=== PATIENT | male | born 1970 | race Caucasian/White ===

== ENCOUNTER 2019-06-20 07:33 | Emergency (ER) | payer OTHER, BC ==
[~2019-06-20] VITALS: Ht 167.6 cm; Wt 99.8 kg
[2019-06-20] MEDS ORDERED: BENAZEPRIL HCL20 MG PO (07:48)
== END 2019-06-20 08:30 | disposition home or self-care (01) ==
LOC: ED 07:33
PROC: 0XQRXZZ Repair Left Middle Finger, External Approach (ICD-10-PCS; principal; 2019-06-20)
DX: S61.213A Laceration without foreign body of left middle finger without damage to nail, initial encounter (principal); S61.215A Laceration without foreign body of left ring finger without damage to nail, initial encounter; I10 Essential (primary) hypertension; Z88.0 Allergy status to penicillin; Z79.899 Other long term (current) drug therapy; W26.8XXA Contact with other sharp object(s), not elsewhere classified, initial encounter
CPT/HCPCS: 12001; 90471; 90715; 99282-25